=== PATIENT | male | born 1995 | race Caucasian/White ===

== ENCOUNTER 2024-01-12 18:00 | Emergency (ER) | payer OTHER ==
--- NOTE | 2024-01-12 18:09 | ERPHSYRPT ---
- History of Present Illness Time Seen by Provider: 01/12/24 18:08 Source: patient, family Exam Limitations: no limitations Physician History: This is a 28-year-old white male patient who presents to the emergency department with right-sided rib/chest pain that began yesterday then resolved. It returned today and was significant enough where he sought medical evaluation at the emergency room and [facility]. X-rays were performed but nothing else per patient. Patient states that the chest x-rays were negative for any acute or emergent medical issue. The patient states that his family wanted a more complete workup including evaluating him for possible myocardial infarction. Patient has a low heart score. He has no history of hea rt disease. He is not short of breath. Patient denies any injury to this area. Timing/Duration: yesterday, intermittent Severity: mild Modifying Factors: Improves With: movement Associated Symptoms: denies symptoms Allergies/Adverse Reactions: No Known Drug Allergies Allergy (Verified 01/12/24 18:10) Travel Risk - International Travel Have you traveled outside of the country in past 3 weeks: No - Emerging Infectious Disease Are you exhibiting symptoms associated with any current EIDs: No - Review of Systems Constitutional: No Symptoms Eyes: No Symptoms Ears, Nose, & Throat: No Symptoms Respiratory: No Symptoms Cardiac: Chest Pain (Right lower rib/right lower chest wall pain) Abdominal/Gastrointestinal: No Symptoms Genitourinary Symptoms: No Symptoms Musculoskeletal: No Symptoms Skin: No Symptoms Neurological: No Symptoms Psychological: No Symptoms Endocrine: No Symptoms - Past Medical History Pertinent Past Medical History: No - Past Surgical History Past Surgical History: Yes Musculoskeletal: Orthopedic Surgery Other Surgical History: rt shoulder surgery - Nursing Vital Signs Nursing Vital Signs: Initial Vital Signs Temperature 98.4 F 01/12/24 18:03 Pulse Rate 83 01/12/24 18:03 Respiratory Rate 21 01/12/24 18:03 Blood Pressure 142/83 01/12/24 18:03 O2 Sat by Pulse Oximetry 100 01/12/24 18:03 Pain Scale Pain Intensity 8 - Physical Exam General Appearance: no apparent distress, alert, anxiety Eye Exam: PERRL/EOMI, eyes nml inspection Ears, Nose, Throat Exam: normal ENT inspection, moist mucous membranes Neck Exam: normal inspection, non-tender, supple, full range of motion Respiratory Exam: normal breath sounds, chest tenderness (Right lower rib tenderness), lungs clear, airway intact, No respiratory distress, No accessory muscle use, No rhonchi, No wheezing, No stridor Cardiovascular Exam: regular rate/rhythm, normal heart sounds, normal peripheral pulses Gastrointestinal/Abdomen Exam: soft, normal bowel sounds, No tenderness Rectal Exam: not done Back Exam: normal inspection, normal range of motion, No CVA tenderness, No vertebral tenderness Extremity Exam: normal inspection, normal range of motion, pelvis stable Neurologic Exam: alert, oriented x 3, cooperative, 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 QTc is 385) Ordered Tests: Active Orders 24 hr Category Date Time Status EKG-ER Only STAT Care 01/12/24 18:56 Active BMP Stat Lab 01/12/24 19:05 Completed D-DIMER QUANTITATIVE Stat Lab 01/12/24 19:05 Completed MAG [MAGNESIUM] Stat Lab 01/12/24 19:05 Completed TROPONIN Q4H Lab 01/12/24 19:05 Completed TROPONIN Q4H Lab 01/12/24 23:00 Ordered TROPONIN Q4H Lab 01/13/24 03:00 Ordered Lab/Rad Data: Laboratory Result Diagrams 01/12/24 19:05 Laboratory Results 01/12/24 01/12/24 01/12/24 Range/Units 19:05 19:05 19:05 D-Dimer < 0.19 (0.0-0.50) mg/L Sodium (135-145) mmol/L Potassium (3.5-5.1) mmol/L Chloride (98-107) mmol/L Carbon Dioxide (22-30) mmol/L Anion Gap (5-15) MEQ/L BUN (9-20) mg/dL Creatinine (0.66-1.25) mg/dL Estimated GFR ML/MIN Glucose (74-106) mg/dL Calcium (8.4-10.2) mg/dL Magnesium 2.1 (1.6-2.3) mg/dL Troponin I < 0.012 (0.000-0.033) ng/mL 01/12/24 Range/Units 19:05 D-Dimer (0.0-0.50) mg/L Sodium 140 (135-145) mmol/L Potassium 4.1 (3.5-5.1) mmol/L Chloride 105 (98-107) mmol/L Carbon Dioxide 26 (22-30) mmol/L Anion Gap 14.2 (5-15) MEQ/L BUN 14 (9-20) mg/dL Creatinine 0.97 (0.66-1.25) mg/dL Estimated GFR 109.1 ML/MIN Glucose 94 (74-106) mg/dL Calcium 9.5 (8.4-10.2) mg/dL Magnesium (1.6-2.3) mg/dL Troponin I (0.000-0.033) ng/mL - Progress Progress: pain not gone completely, re-examined Progress Note: 01/12/24 19:00 My medical decision making and the assignment of moderate complexity to this patient's medical issue today is based on review of the patient's past medical history, review of patient's medication list, reviewed patient drug allergy list, history present illness and physical findings on examination. The workup in this patient includes twelve-lead EKG, BMP, magnesium level and D-dimer level. Differential diagnosis includes but is not limited to pleurisy, muscle skeletal pain, electrolyte abnormalities, arrhythmia, myocardial infarction, pulmonary embolus 01/12/24 20:04 I interpreted the patient's laboratory data results. Based on the laboratory data results, there were no acute, emergent medical issues. Counseled pt/family regarding: lab results, diagnosis, need for follow-up - Departure Departure Disposition: Home Clinical Impression: Pain on movement of skeletal muscle Condition: Stable Critical Care Time: No Referrals: JUWAN HERNÁNDEZ MD [Primary Care Provider] - Follow up/PCP as directed Additional Instructions: Drink plenty of fluids. May use Tylenol to add to the pain control regimen. Call your primary care provider on 01/15/2024, to make arranges for follow-up appointment for further evaluation management. Prescriptions: Prednisone 10 mg [Deltasone 10 mg] 10 mg PO TID #12 tablet Orphenadrine Citrate 100 mg [Norflex 100 MG Tablet] 100 mg PO BID #10 tab
[2024-01-12 18:10] VITALS: TEMP 98.4
[2024-01-12 19:32] VITALS: O2SAT 99
[2024-01-12 19:35] LABS: ANION GAP 14.2 MEQ/L (5-15); Calcium 9.5 mg/dL (8.4-10.2); Creatinine 1 0.97 mg/dL (0.66-1.25); EST GLOMERULAR FILTRATION RATE 109.1 ML/MIN; Potassium 4.1 mmol/L (3.5-5.1)
[2024-01-12 20:05] VITALS: BP 115/60; PULSE 63; RESP 28
[2024-01-12] MEDS ORDERED: Norflex 100 MG Tablet PO ONE (20:41)
[2024-01-12] MEDS ORDERED: DELTASONE 20 MG ONE (20:41)
[2024-01-12] MEDS: Norflex 100 MG Tablet PO ONE (20:47)
[2024-01-12] MEDS: DELTASONE 20 MG PO ONE (20:48)
== END 2024-01-12 20:50 | disposition home or self-care (01) ==
LOC: ED 18:00
DX: M79.18 Myalgia, other site (principal); R07.9 Chest pain, unspecified; Z79.52 Long term (current) use of systemic steroids; Z79.899 Other long term (current) drug therapy
CPT/HCPCS: 36415; 80048; 83735; 84484; 85379; 93005; 99283; A9270-GY